=== PATIENT | female | born 1970 | race Caucasian/White ===

== ENCOUNTER → 2024-08-27 07:39 | Outpatient (REF) | payer BC, SELFPAY | LOC: HWRAD 07:39 | PROVIDERS: ATTENDING PHYSICIAN Family Medicine | DX: R10.11 Right upper quadrant pain (principal) | CPT/HCPCS: 76700 ==

== ENCOUNTER → 2025-02-21 10:32 | Outpatient (REF) | payer BC, SELFPAY | LOC: HWRCS 10:32 | PROVIDERS: ATTENDING PHYSICIAN Student in an Organized Health Care Education/Training Program; FAMILY PHYSICIAN Family Medicine | DX: I25.10 Atherosclerotic heart disease of native coronary artery without angina pectoris (principal) | CPT/HCPCS: 93306 ==

== ENCOUNTER 2025-07-26 11:04 | Emergency (ER) | payer BC, SELFPAY ==
[2025-07-26 11:13] VITALS: BP 150/93
--- NOTE | 2025-07-26 11:50 | ED.GENMED ---
History of Present Illness
General
Chief Complaint: Abdominal Pain
Source: patient
Exam Limitations: none
Time Seen by Provider: 07/26/25 11:28
History of Present Illness
History of Present Illness:
55yoF with a history of coronary artery disease s/p PCI presenting for evaluation of abdominal pain. She has been experiencing intermittent sharp pains in her right lower quadrant for the past several weeks. She was seen by her PCP for this and
was given a prescription for an outpatient pelvic ultrasound which she has scheduled for next week. Her pain became constant about 3 days ago and has been gradually worsening. Pain is worse with any sort of movement. She felt a lump in the area
today. She spoke with her PCP who advised her to go to the ED for evaluation. Patient reports nausea but denies vomiting. She has chronic diarrhea which is no worse than normal. She denies any urinary symptoms, fevers, hematochezia. Previous
abdominal surgeries include a section x 2 and an abdominoplasty.
Past History
Past History
ED Past Medical History: CAD, [place] and Other (Anxiety)
ED Past Surgical History: None
Phy Exam
General Physical Exam
General Presentation: well appearing and no apparent distress
General Skin: warm and dry
General Habitus: normal
General Mental: alert
ENT Exam
ENT Exam: normocephalic
Pulmonary Exam
Pulmonary Exam: no respiratory distress
Gastrointestinal Exam
Gastrointestinal Exam: soft, non distended and other (+Tenderness to RLQ with palpable fullness. No obvious hernia. No rebound or guarding.)
Neurological Exam
Neurological Exam: alert
[place] Coma Scale
Eye Opening: Spontaneous
Verbal Response: Oriented
Motor Response: Obeys Commands
GCS Total Score: 15
Skin Exam
Skin Exam: normal color and warm/dry
Psychiatric Exam
Psychiatric Exam: normal mood/affect
Course
Orders/Labs/Results
Orders:
Orders
07/26/25 11:49
CT Abd/pelvis W Iv Cont Urgent
Comment:
Reason For Exam: RLQ pain, palpable lump
07/26/25 11:58
Complete Blood Count/With Diff Urgent
Comprehensive Metabolic Panel Urgent
Abnormal Lab Results
07/26/25
11:58
Monocytes % 9.6 H %
(1.7-9.3)
07/26/25 11:58
07/26/25 11:58
Vital Signs
Initial and Last Documented VS:
Initial Vital Signs
Temp Pulse Resp BP Pulse Ox
97.6 F 70 18 150/93 98
07/26/25 11:13 07/26/25 11:13 07/26/25 11:13 07/26/25 11:13 07/26/25 11:13
Last Documented Vital Signs
Temp Pulse Resp BP Pulse Ox
97.6 F 70 18 149/84 97
07/26/25 11:13 07/26/25 11:13 07/26/25 11:13 07/26/25 13:18 07/26/25 13:18
MDM/Problems Addressed
Differential Diagnosis Includes:
55yoF here with RLQ pain. Intermittent x several weeks, now constant x 2-3 days. Worse with movement. [place] a lump this morning. She is hypertensive with otherwise normal vitals. She is well appearing in no distress. There is tenderness on exam with
a palpable fullness. No signs of peritonitis noted. Differential diagnosis includes but is not limited to: appendicitis, hernia, constipation, musculoskeletal
Initial ED plan: Check CBC, CMP, and CT abdomen.
*Pulse Oximetry
SaO2: 98
Oxygen Mode of Delivery: Room air
Patient hypoxic: no (98%)
*Critical Care Note
Total Time (30-74mins, 75-104mins- exclusive of procedures): Not Applicable
Update Note
Update Note:
CT shows 'Mild asymmetric thickening and heterogeneous appearance of the right rectus abdominal muscle compatible with acute intramuscular hematoma.' No signs of active extravasation. There is also a nonspecific moderate amount of fluid within the
colon which appears non-thickened which can be associate with diarrhea. Appendix is unremarkable. Hemoglobin normal at 12.7. Upon further questioning, patient does report doing crunches about 2 weeks ago with weights and she had to stop due to
pain. She denies any other trauma to the area. She does describe the pain as feeling like a muscle soreness. Her only blood thinner is a baby aspirin. Patient stable for discharge. Supportive care discussed including ice and rest. She was
advised to f/u with her PCP and strict ED return precautions reviewed. Patient in agreement with plan and was discharged in stable condition.
ED Attending Note
-
Portions of this chart may have been created with voice recognition software.� Occasional wrong word or��sound alike� substitutions may have occurred due to the inherent limitations of voice recognition software.
Discharge Plan
Departure
Patient Disposition: Home (Routine Discharge)
Date of Disposition: 07/26/25
Time of Disposition: 16:12
Patient with high blood pressure during this ER visit?: Yes
Discharge Problem:
Rectus sheath hematoma
Instructions: Hematoma
Prescriptions:
No Action
escitalopram oxalate 10 MG tablet
10 mg PO DAILY
atorvastatin 80 MG tablet
80 mg PO QPM Qty: 30 2RF
acetaminophen 325 MG tablet
650 mg PO Q4HPRN PRN (Reason: mild pain) 0RF
aspirin 81 MG tablet,chewable
81 mg PO DAILY 0RF
losartan-hydrochlorothiazide 50-12.5 mg Tablet
1 tab PO QPM
clopidogrel [clopidogrel] 75 mg tablet
75 mg PO DAILY Qty: 90 10RF
nitroglycerin [nitroglycerin] 0.4 mg tablet, sublingual
0.4 mg sublingual [id number] PRN (Reason: chest pain) Qty: 25 5RF
Referrals:
Jim Schmidt MD [Family Provider, Family Practice]
Activity Restrictions/Additional Instructions:
Apply ice to affected area. Take Tylenol as needed for pain. Rest and avoid any abdominal exercise until your symptoms resolve.
Please follow-up with your family doctor in 3-4 days. Return to the ER with any worsening symptoms including severe pain or if your lump is enlarging.
Interventions
Interventions:
*Risk Screen - Suicide Last Done: 07/26/25 11:13
[facility] Assessment Last Done: 07/26/25 12:06
Discharge Date and Time
Print Language: FRISIAN
[2025-07-26 11:56] VITALS: BMI 26.5
[2025-07-26 12:12] LABS: Hematocrit 38.0 % (37.0-47.0); Hemoglobin 12.7 g/dL (12.0-16.0); Mean Corp Hgb Conc. 33.4 g/dL (33.0-37.0); Mean Corpuscular Volume 86.8 fL (81.0-99.0); Nucleated Red Blood Cells % 0 %; Platelet Count 295 10^3/uL (130-400); Red Cell Dist. Width 13.1 % (11.5-14.5)
[2025-07-26 12:28] LABS: ALT (SGPT) 25 U/L (0-35); AST (SGOT) 21 U/L (14-36); Albumin 4.6 g/dl (3.5-5.0); Alkaline Phosphatase 66 U/L (38-126); Blood Urea Nitrogen 15 mg/dl (7-17); Calcium 9.7 mg/dl (8.4-10.2); Carbon Dioxide 28 mmol/L (22-30); Chloride 102 mmol/L (98-107); Estimated Creatinine Clearance 104 ml/min; Glucose 84 mg/dl (70-99); Potassium 3.9 mmol/L (3.5-5.1); Sodium 135 mmol/L (135-145); Total Protein 7.5 g/dl (6.3-8.2); eGFR > 60.00
[2025-07-26 13:18] VITALS: BP 149/84
[2025-07-26 16:33] VITALS: BP 131/99
== END 2025-07-26 16:34 | disposition home or self-care (01) ==
LOC: EMR 11:04
PROVIDERS: Physician Assistant; EMERGENCY PHYSICIAN Emergency Medicine; FAMILY PHYSICIAN Family Medicine
DX: S30.1XXA Contusion of abdominal wall, initial encounter (principal); X58.XXXA Exposure to other specified factors, initial encounter; I25.10 Atherosclerotic heart disease of native coronary artery without angina pectoris; F41.9 Anxiety disorder, unspecified; K52.9 Noninfective gastroenteritis and colitis, unspecified; Z95.5 Presence of coronary angioplasty implant and graft
CPT/HCPCS: 99284; 74177; 80053; 85025; Q9967

== ENCOUNTER → 2025-07-31 08:07 | Outpatient (REF) | payer BC, SELFPAY | LOC: HWRAD 08:07 | PROVIDERS: ATTENDING PHYSICIAN Family Medicine | DX: R10.2 Pelvic and perineal pain (principal) | CPT/HCPCS: 76830; 76856 ==